=== PATIENT | female | born 1985 | race Caucasian/White ===

== ENCOUNTER 2017-03-26 08:33 | Inpatient (IN) | payer OTHER ==
[~2017-03-26] VITALS: Ht 175.3 cm; Wt 110.2 kg
[2017-03-26] MEDS ORDERED: PRENATAL TABLE1 EAC2 PO (09:16)
[2017-03-26 11:52] LABS: ABSOLUTE BASOPHIL COUNT 0 /CUMM (0.0-0.2); ABSOLUTE EOSINOPHIL COUNT 0 /CUMM (0.0-0.7); ABSOLUTE GRANULOCYTE CT 7.5 /CUMM (1.4-6.5); ABSOLUTE LYMPH COUNT 1.5 /CUMM (1.2-3.4); ABSOLUTE MONOCYTE COUNT 0.7 /CUMM (0.10-0.60); BASOPHIL % 0.3 % (0.0-2.0); EOSINOPHIL % 0.4 % (0-5); GRANULOCYTE % 76.8 % (42.2-75.2); HEMATOCRIT 39.2 % (37-47); MEAN CORPUSCULAR HGB 30.2 PG (27.0-31.0); MEAN CORPUSCULAR HGB CONC 33.9 G/DL (33.0-37.0); MEAN CORPUSCULAR VOLUME 88.9 FL (81.0-99.0); MEAN PLATELET VOLUME 9.7 FL (7.4-10.4); PLATELET COUNT 216 /CUMM (130-400); RBC DISTRIBUTION WIDTH 13.8 % (11.5-14.5); RED BLOOD CELL CT 4.41 /CUMM (4.20-5.40); WHITE BLOOD CELL COUNT 9.7 /CUMM (4.8-10.8)
--- NOTE | 2017-03-26 20:29 | History & Physical ---
General Information and HPI MD Statement: I have seen and personally examined PARESH DANIELS and documented this H&P. The patient is a 31 year old female at [40] weeks and [4] days gestation who presented with a chief complaint of [IOL]. Source of Information: police History of Present Illness: 31yo G1 lmp 05/21/16 edc 03/22/17 for IOL postdates. 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 EENTM: Reports: no symptoms. Cardiovascular: Reports: no symptoms. Respiratory: Reports: no symptoms. GI: Reports: no symptoms. Genitourinary: Reports: no symptoms. Musculoskeletal: Reports: no symptoms. Skin: Reports: no symptoms. Neurological/Psychological: Reports: no symptoms. Hematologic/Endocrine: Reports: no symptoms. Immunologic/Allergic: Reports: no symptoms. All Other Systems: Reviewed and Negative Exam & Diagnostic Data Last 24 Hrs of Vital Signs/I&O Intake & Output 03/26 1600 03/26 0800 03/26 0000 Intake Total Output Total Balance Patient 243 lb Weight Obstetric Exam Wgt Gained During : 43 Pelvimetry: gynecoid Dilation (cm): 0 Effacement (%): 0 Station: -2 Membranes: intact Fluid: unknown Fundal Height (cm): 42 Multiple Gestation? No Contractions: occ Infant #1 - FHR Baseline: 125 Category: 1 Estimated Weight: 8.5 Presentation: cephalic Patient for Induction? Yes Kang Score Kang Score Response Value Cervix Position: posterior 0 Cervix Consistency: soft 2 Cervix Effacement: 0-30% 0 Cervix Dilation: closed 0 Cervix Station: -2 1 Total 3 Physical Exam: HEENT: NCAT chest: CTA CV: nl S1S2 Abd: gravid, cephalic, EFW 8.5 Ext: no c/c/e Neuro: nonfocal Labs Blood Type & Rh: O pos Antibody Screen: Neg Hct/Hgb & Platelets #1: Hct/Hgb & Platelets #2: Rubella: imm VDRL #1: nr VDRL #2: nr HbsAg: neg HIV #1: neg HIV #2 neg 1 Hr P Group B Strep: neg Initial Ultrasound: wnl Anatomy Ultrasound: wnl Ultrasound for EFW: 7-9 Genetic Testing: neg Last 24 Hrs of Labs/Abner: Laboratory Tests 03/26/17917: CBC w Diff NO MAN DIFF REQ, RBC 4.41, MCV 88.9, MCH 30.2, RDW 13.8, MPV 9.7, Gran % 76.8 H, Lymphocytes % 15.8 L, Monocytes % 6.7, Eosinophils % 0.4, Basophils % 0.3, Absolute Granulocytes 7.5 H, Absolute Lymphocytes 1.5, Absolute Monocytes 0.7 H, Absolute Eosinophils 0, Absolute Basophils 0, PUBS MCHC 33.9, Urine Color YEL, Urine Clarity HAZY H, Urine pH 6.0, Ur Specific [place] 1.025, Urine Protein TRACE H, Urine Ketones NEG, Urine Nitrite NEG, Urine Bilirubin NEG, Urine Urobilinogen 0.2, Ur Leukocyte Esterase SMALL H, Ur Microscopic SEDIMENT EXAMINED, Urine RBC RARE, Urine WBC 1-3 H, Ur Epithelial Cells MANY H, Urine Bacteria FEW H, Urine Hemoglobin NEG, Urine Glucose NEG Assessment/Plan Assessment/Plan: postdates poor Kang score Misoprostol ripening As Ranked By This Provider Problem List: 1. Core Measures Venous Thromboembolism VTE Risk Factors Obesity No Mechanical VTE Prophylaxis d/t Early Ambulation No VTE Pharm Prophylaxis d/t Bleeding (Active)
--- NOTE | 2017-03-26 20:31 | PN- Obstetrical ---
Subjective Subjective: pain 3-4 Review of Systems: neg Objective Last 24 Hrs of Vital Signs/I&O Intake & Output 03/26 1600 03/26 0800 03/26 0000 Intake Total Output Total Balance Patient 243 lb Weight Obstetric Exam Dilation (cm): 1 Effacement (%): 0 Station: -2 Membranes: intact Fluid: unknown Multiple Gestation? No Contractions: q2-3 #1 - FHR Baseline: 125 Category: 1 Estimated Weight: 8.5 Presentation: cephalic Assessment/Plan Assessment/Plan minimal change rest overnight Pitocin in am Problem List: 1.
[2017-03-28 09:09] LABS: ABSOLUTE BASOPHIL COUNT 0 /CUMM (0.0-0.2); ABSOLUTE EOSINOPHIL COUNT 0 /CUMM (0.0-0.7); ABSOLUTE GRANULOCYTE CT 8.4 /CUMM (1.4-6.5); ABSOLUTE LYMPH COUNT 1.4 /CUMM (1.2-3.4); ABSOLUTE MONOCYTE COUNT 0.5 /CUMM (0.10-0.60); BASOPHIL % 0.4 % (0.0-2.0); EOSINOPHIL % 0.4 % (0-5); GRANULOCYTE % 80.4 % (42.2-75.2); HEMATOCRIT 34.5 % (37-47); MEAN CORPUSCULAR HGB 30.3 PG (27.0-31.0); MEAN CORPUSCULAR HGB CONC 33.8 G/DL (33.0-37.0); MEAN CORPUSCULAR VOLUME 89.7 FL (81.0-99.0); MEAN PLATELET VOLUME 8.8 FL (7.4-10.4); PLATELET COUNT 179 /CUMM (130-400); RBC DISTRIBUTION WIDTH 14.4 % (11.5-14.5); RED BLOOD CELL CT 3.85 /CUMM (4.20-5.40); WHITE BLOOD CELL COUNT 10.4 /CUMM (4.8-10.8)
--- NOTE | 2017-03-29 13:26 | PN- General Surgery ---
Subjective Subjective: no c/o Review of Systems: neg Objective Vital Signs and I&Os vss afebrile Physical Exam: incision c/d/i ext nt Assessment/Plan Assessment/Plan s/p c/s pod2 no c/o circumcision Problem List: 1. Core Measures Venous Thromboembolism VTE Risk Factors Obesity No Mechanical VTE Prophylaxis d/t Early Ambulation No VTE Pharm Prophylaxis d/t Bleeding (Active)
--- NOTE | 2017-03-29 13:31 | Operative Report ---
Operative/Inv Procedure Report Surgery Date: 03/27/17 Name of Procedure: Primary Pre-Operative Diagnosis: Nonreassuring heart rate testing Post-Operative Diagnosis: Same Estimated Blood Loss: 1000cc Surgeon/Proposal Coordinator: Samy Lau MD,Jabari Mosley M.D. Anesthesia: spinal Operative/Procedure Note Note: The patient was brought to the operating room and placed on the OR table in the sitting position where she underwent spinal anesthetic without complication. She was repositioned into dorsal supine block under her right. Venodyne boots were placed and activated. A Yi catheter was inserted and drained clear yellow urine. The abdomen was prepped and draped in the usual sterile fashion. The skin was tested and a Pfannenstiel skin incision was made with the scalpel and taken down to the layer of the fascia. The fascia was nicked in the midline and extended bilaterally. The underlying rectus muscles were and the peritoneal cavity was entered sharply. The peritoneal incision was extended bilaterally. A bladder blade was inserted to protect the bladder from the operative field. A bladder flap was created using Metzenbaum scissors. This was placed behind the bladder blade. A low transverse uterine incision was made with the scalpel and this was teed anteriorly as the head was large. A liveborn male was delivered atraumatically and handed off to the waiting mash preparatory operator. The placenta was then manually removed intact with three-vessel cord. The uterus was then exteriorized and wiped clean with a wet lap sponge. The teed incision was closed first in a running locking fashion. The uterus was then closed in 2 layers of 0 Polysorb, the second imbricating the first. The abdomen and pelvis were copiously irrigated and the uterus was placed back into the abdominal cavity. Suture line was once again visualized and there was some bleeding noted from the midline. An interrupted suture of 0 Polysorb was placed in a [id number] fashion and hemostasis was good. The peritoneum was reapproximated using 2-0 Polysorb in a running nonlocking fashion. Rectus muscles were reapproximated with one interrupted suture of 0 Polysorb. The fascia was closed with 0 Polysorb in a running nonlocking fashion. Subcutaneous tissues were then irrigated and closed in 3 interrupted sutures of 2-0 Polysorb. The skin was closed in a subcuticular fashion of 4-0 Biosyn on a Brendan needle. Steri-Strips are placed a dry sterile dressing was placed the patient was sent to recovery in good condition. All needle, sponge, and instrument counts were correct at the end of the procedure 4. note: Patient is not a candidate
[2017-03-30] MEDS ORDERED: PERCOCET 5-3251 EACH PO (07:05)
[2017-03-30] MEDS ORDERED: IBUPROFEN800 M1 PO (07:05)
[2017-03-30] MEDS ORDERED: DOCUSATE SODIU100 M3 PO (07:05)
--- NOTE | 2017-04-02 13:44 | Surgical Discharge Summary ---
Visit Information Visit Dates Admission Date: 03/26/17 Discharge Date: 03/30/17 History of Present Illness Chief Complaint: Postdates and nonreassuring heart rate testing Surgical History Pertinent Surgical History: D&C Psychosocial History What is Your Primary Language? [place] Review of Systems: Negative Hospital Course Course Attending Physician: Jabari Daugherty MD Primary Care Physician: Patient Has No Primary Care Dr Hospital Course: The patient was admitted postdates for induction of labor. She had a poor Kang score and therefore was given misoprostol cervical ripening on first day of admission. Left the first night and on the second day of induction Pitocin was begun intravenously. After an hour of Pitocin induction there were decelerations noted which became deeper and deeper with time and the decision was made to continue with a primary as her cervix was closed and remote from delivery. The patient agreed and she was sent for primary C- section. was completed without complication and patient was returned to the recovery room. On postoperative day #1 the Yi was discontinued diet was advanced and activity was increased. She was afebrile and her vital signs are stable. On postoperative day #2 the patient continued to do well without complaint. Postoperative day #3 the patient was discharged. Allergies: Coded Allergies: strawberry (Intermediate, UPSET STOMACH 03/27/17) Disposition Summary Disposition Principal Diagnosis: Postdates Additional Diagnosis: Nonreassuring heart rate testing Discharge Disposition: home or self care Discharge Instructions General Discharge Information Code Status: Full Code Patient's Diet: Regular Patient's Activity: Pelvic rest with weekly restrictions Follow-Up Instructions/Appts: 1 week incision check Medications at Discharge Discharge Medications: Continue taking these medications: Vit No.130/Iron/FA ( Tablet) 27 MG IRON-800 MCG TABLET 1 Tablet ORAL DAILY Start taking the following new medications: Ibuprofen (Ibuprofen) 800 MG TABLET 800 Milligram ORAL EVERY SIX HOURS NEEDED as needed for UTERINE CRAMPING Qty = 36 Refills = 1 Comments: Last Taken:03/30/17 Time:035 Oxycodone HCl/Acetaminophen (Percocet 5-325 MG Tablet) 5 MG-325 MG TABLET 1 Tablet ORAL EVERY 4 HOURS NEEDED as needed for PAIN SCALE 4-6 (MODERATE ) Qty = 12 No Refills Docusate Sodium (Docusate Sodium) 100 MG CAPSULE 100 Milligram ORAL TWICE DAILY as needed for STOOL SOFTENER Qty = 60 No Refills Comments: Last Taken:03/29/17 Time:2145
== END 2017-03-30 09:30 | DRG 766 ==
LOC: GNO 08:33
PROVIDERS: Obstetrics & Gynecology
PROC: 3E0P7VZ Introduction of Hormone into Female Reproductive, Via Natural or Artificial Opening (ICD-10-PCS; 2017-03-26)
PROC: 10D00Z1 Extraction of Products of Conception, Low, Open Approach (ICD-10-PCS; principal; 2017-03-27)
DX: O48.0 Post-term pregnancy (principal); O76 Abnormality in fetal heart rate and rhythm complicating labor and delivery; Z3A.40 40 weeks gestation of pregnancy; Z37.0 Single live birth
CPT/HCPCS: GNOP; GNOS; 36415; 81001; 87086; J0690; J1650; J1885; J7120